=== PATIENT | female | born 1995 | race Caucasian/White ===

== ENCOUNTER → 2020-03-20 | Outpatient (CLI) | payer SELFPAY | LOC: M LABSMTC 12:12 | PROVIDERS: ATTEND Pediatrics | DX: Z20.822 Contact with and (suspected) exposure to COVID-19 (principal) ==

== ENCOUNTER 2021-08-11 14:38 | Emergency (ER) | payer MEDICARE, MEDICAID ==
[~2021-08-11] VITALS: Ht 152.4 cm; Wt 145.0 kg
[2021-08-11 14:38] VITALS: BP 136/88
== END 2021-08-11 16:48 | disposition left against medical advice (07) ==
LOC: M ED 14:38
DX: R10.9 Unspecified abdominal pain (principal); I10 Essential (primary) hypertension; Z94.0 Kidney transplant status; Z88.2 Allergy status to sulfonamides; Z91.040 Latex allergy status; Z88.8 Allergy status to other drugs, medicaments and biological substances; Z53.21 Procedure and treatment not carried out due to patient leaving prior to being seen by health care provider

== ENCOUNTER → 2022-05-22 | Outpatient (CLI) | payer MEDICARE, MEDICAID | LOC: M LABSMTC 07:39 | PROVIDERS: ATTEND Colon & Rectal Surgery | DX: Z01.812 Encounter for preprocedural laboratory examination (principal); Z20.822 Contact with and (suspected) exposure to COVID-19 ==